=== PATIENT | male | born 1930 | race Asian ===

== ENCOUNTER 2016-09-27 22:13 | Emergency (ER) | payer OTHER ==
[~2016-09-27] VITALS: Ht 180.3 cm; Wt 0.5 kg
[~2016-09-27 22:13] MED LIST: CALCIUM CHLORIDE 1GM/10ML SYR IV ONE; DIATR MEGLU/DIATRIZOATE SOLN 120ML ONE; EPINEPHRINE 0.1MG/ML (1:10,000) 10ML SYR ONE; ETOMIDATE 2MG/ML 10ML VIAL IV ONE; SODIUM BICARBONATE 7.5% 0.9 MEQ/ML 50ML SYR IV ONE; SUCCINYLCHOLINE CHLORIDE 200MG/10ML VIAL IV ONE
[2016-09-27] MEDS ORDERED: SODIUM CHLORIDE 0.9% 1,000 ML IV ONE (23:13)
[2016-09-27] MEDS ORDERED: MORPHINE SULFATE 4 MG/ML CPJ (NOT FOR IM USE) IV STA (23:13)
[2016-09-27] MEDS ORDERED: ONDANSETRON HCL 4MG/2ML VIAL IV STA (23:13)
[2016-09-27 23:47] LABS: CHLORIDE 108 mEq/L (98-107); INDEX HEMOLYSI 1 (1-3); INDEX ICTERIC 1 (1-4); INDEX LIPEMIC 1 (1-3)
[2016-09-27 23:50] LABS: INR 1.1; PROTHROMBIN TIME 11.4 sec
[2016-09-27 23:54] LABS: BASOPHILS % 0.5 % (0.0-2.0); EOSINOPHILS % 0.1 % (0.0-5.0); HEMATOCRIT. 31.7 % (42.0-52.0); HEMOGLOBIN. 10.3 g/dL (14.0-18.0); LYMPHOCYTES % 11.6 % (20.0-50.0); MEAN CORPUSCULAR HEMOGLOBIN 30.2 pg (28.0-32.0); MEAN CORPUSCULAR HGB CONC 32.6 g/dL (31.0-37.0); MEAN CORPUSCULAR VOLUME 92.6 fL (80.0-94.0); MEAN PLATELET VOLUME 8.2 fl (7.4-10.4); MONOCYTES % 6.9 % (2.0-8.0); NEUTROPHILS % 80.9 % (40.0-76.0); PLATELET 152 x1000/uL (130-400); RED BLOOD CELL COUNT 3.42 mill/uL (4.7-6.1); RED CELL DISTRIBUTION WIDTH 14.4 % (11.6-14.6); WHITE BLOOD COUNT 12.1 x1000/uL (4.5-11.0)
[2016-09-27 23:58] LABS: ALANINE AMINOTRANSFERASE 18 IU/L (13-61); ALBUMIN 2.4 g/dL (3.4-5.0); ANION GAP 14; CALCIUM 8.1 mg/dL (8.5-10.1); CARBON DIOXIDE 22 mEq/L (21-32); LIPASE 219 IU/L (73-393); NT PRO B-TYPE NATRIURETIC PEP 1980 pg/mL (5-125); UREA NITROGEN BLOOD 35 mg/dL (7-21); eGFR 20 mL/min (>60)
[2016-09-28] MEDS ORDERED: SUCCINYLCHOLINE CHLORIDE 200MG/10ML VIAL IV ONE (00:30)
[2016-09-28] MEDS ORDERED: MIDAZOLAM HCL 50 MG in DEXTROSE 5% WATER 40 ML IV ONE (00:30)
[2016-09-28] MEDS ORDERED: ETOMIDATE 2MG/ML 10ML VIAL IV ONE (00:30)
[2016-09-28 00:38] LABS: CLARITY URINE CLOUDY (CLEAR); COLOR URINE YELLOW (YELLOW); GLUCOSE URINE TRACE (NEGATIVE); KETONES URINE NEGATIVE (NEGATIVE); LEUKOCYTE ESTERASE URINE NEGATIVE (NEGATIVE); NITRITE URINE NEGATIVE (NEGATIVE); OCCULT BLOOD URINE TRACE (NEGATIVE); PROTEIN URINE 3+ (NEGATIVE); SPECIFIC GRAVITY URINE 1.021 (1.005-1.030)
[2016-09-28] MEDS ORDERED: SODIUM CHLORIDE 0.9% 1,000 ML IV ONE ×2 (01:01)
[2016-09-28] MEDS ORDERED: NOREPINEPHRINE 4 MG in DEXT 5% WATER 246 ML IV ONE ×4 (01:15)
[2016-09-28 01:40] LABS: HEMATOCRIT. 21.3 % (42.0-52.0); MEAN CORPUSCULAR HEMOGLOBIN 31.3 pg (28.0-32.0); MEAN CORPUSCULAR HGB CONC 31.5 g/dL (31.0-37.0); MEAN CORPUSCULAR VOLUME 99.4 fL (80.0-94.0); MEAN PLATELET VOLUME 8.3 fl (7.4-10.4); PLATELET 63 x1000/uL (130-400); RED BLOOD CELL COUNT 2.14 mill/uL (4.7-6.1)
[2016-09-28 01:54] LABS: DIFFERENTIAL COMMENT 1
[2016-09-28 01:59] LABS: BG BASE EXCESS -18.8 mmol/L (-2.0-2.0); BG CARBOXYHEMOGLOBIN 0.1 % (0.5-1.5); BG DEOXYHEMOGLOBIN 5.3 % (0.0-5.0); BG FRACTION INSPIRED OXYGEN 80; BG HCO3 ACT 9.7 mmol/L (22.0-26.0); BG METHEMOGLOBIN 0.9 % (0.0-1.5); BG OXYGEN SATURATION 94.6 % (92.0-98.5); BG OXYHEMOGLOBIN 93.7 % (94.0-97.0); BG PCO2 34.2 mmHg (35.0-45.0); BG SAMPLE SITE LEFT RADIAL; BG TIDAL VOLUME(mL) 500 mL; BG TOTAL HEMOGLOBIN 6.5 g/dL (12.0-18.0); BG VENT MODE VENT - A/C; BG VENT RATE 16 set
[2016-09-28 02:01] LABS: HEMOGLOBIN. 6.7 g/dL (14.0-18.0)
[2016-09-28] MEDS ORDERED: MORPHINE (DRIP)100 MG in DEXT 5% WATER 100ML IV PRN (03:45)
[2016-09-28 03:46] LABS: SQUAMOUS EPITHELIAL CELL URINE NONE SEEN /lpf (RARE/1+)
[2016-09-28 03:48] LABS: RBC URINE 0-2 /hpf (0-2)
[2016-09-28 03:51] LABS: BACTERIA URINE NONE SEEN
[2016-09-28 06:52] LABS: HEPATITIS B SURFACE ANTIGEN NEGATIVE
[2016-09-28 06:53] LABS: PLATELET ESTIMATE DECREASED
[2016-09-28 07:19] LABS: HEPATITIS B CORE AB IGM NEGATIVE; HEPATITIS C VIR.AB < 0.02 INDEXVAL (0.00-0.80)
[2016-09-28 07:21] LABS: HEPATITIS A AB IGM NEGATIVE (NEGATIVE)
[2016-09-28] MEDS ORDERED: SODIUM BICARBONATE 8.4% 1 MEQ/ML 50ML SYR IV ONE ×2 (08:21→09:02)
[2016-09-28] MEDS ORDERED: EPINEPHRINE 0.1MG/ML (1:10,000) 10ML SYR ONE ×3 (08:27→09:16)
[2016-09-28 08:45] VITALS: BP 103/40
== END 2016-09-28 11:30 | disposition expired ==
LOC: ER 22:14
DX: I71.8 Aortic aneurysm of unspecified site, ruptured (principal); T79.4XXA Traumatic shock, initial encounter; I10 Essential (primary) hypertension; Z87.891 Personal history of nicotine dependence; Z86.74 Personal history of sudden cardiac arrest; X58.XXXA Exposure to other specified factors, initial encounter
CPT/HCPCS: 31500; 36415; 36430; 36600; 51702; 71010; 74176; 76705; 80053; 81001; 82375; 82805; 83690; 83880; 85025; 85610; 86850; 86900; 86901; 86920; 92950; 93005; 94003; 96365; 96368; 96375; 96376; 99291; J0171; J0330; J2250; J2270; J2405; J3490; J7030; J7040; P9016; Z7610; 86705; 86709; 86803; 87340; J7060; Q9963